=== PATIENT | female | born 1975 | race Caucasian/White ===

== ENCOUNTER 2023-06-01 07:38 | Emergency (ER) | payer OTHER, MEDICAID ==
[~2023-06-01] VITALS: Ht 165.1 cm; Wt 81.6 kg
[2023-06-01 07:47] VITALS: BP 148/96; PULSE 91; RESP 18; TEMP 98.1; O2SAT 99
--- NOTE | 2023-06-01 08:55 | NUR ---
TO ER BED 7
--- NOTE | 2023-06-01 08:59 | NUR ---
Patient being evaluated by physician at bedside.
[2023-06-01 09:05] VITALS: BP 132/88; PULSE 72; RESP 15; TEMP 97.5
[2023-06-01] MEDS ORDERED: ALBUTEROL SULFATE/IPRATROPIU 3 ML SOL IH ONE ×2 (09:05)
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
--- NOTE | 2023-06-01 09:06 | NUR ---
[facility]AT[facility] DRUG GIVEN ENCOURAGED PATIENT FOR INTERMITTENT DEEP BREATH DURING THERAPY
[2023-06-01 09:10] VITALS: O2SAT 99
[2023-06-01] MEDS ORDERED: CETI10SG1 PO (09:28)
--- NOTE | 2023-06-01 09:36 | NUR ---
Patient discharged with v/s stable. Written and verbal after care instructions given and explained. Patient verbalized understanding. PRESCRIPTION CETIRIZINE HCI GIVEN. Ambulatory with steady gait. All questions addressed prior to discharge. Advised to follow up with PMD.
--- NOTE | 2023-06-01 09:37 | NUR ---
The patient's care was reviewed and supervised by Taisha Aquino, RN, RN.
== END 2023-06-01 09:36 | disposition home or self-care (01) ==
LOC: MED 07:38
DX: S31.139A Puncture wound of abdominal wall without foreign body, unspecified quadrant without penetration into peritoneal cavity, initial encounter (principal); V49.88XA Car occupant (driver) (passenger) injured in other specified transport accidents, initial encounter; Y93.89 Activity, other specified; Y92.89 Other specified places as the place of occurrence of the external cause; Y99.8 Other external cause status
CPT/HCPCS: 94640; 99282; 99283